=== PATIENT | female | born 1990 | race Two or more races ===

== ENCOUNTER 2023-04-02 09:01 | Outpatient (CLI) | payer OTHER | END 2023-04-02 09:07 | disposition home or self-care (01) | LOC: RX STUDY 09:01 | PROVIDERS: ATTEND Obstetrics & Gynecology Reproductive Endocrinology | DX: N93.0 Postcoital and contact bleeding (principal) ==

== ENCOUNTER 2024-08-15 09:18 | Outpatient (CLI) | payer OTHER | END 2024-08-15 10:08 | disposition home or self-care (01) | LOC: NST 09:18 | PROVIDERS: ATTEND Obstetrics & Gynecology Maternal & Fetal Medicine | DX: Z34.83 Encounter for supervision of other normal pregnancy, third trimester (principal) ==

== ENCOUNTER 2024-09-01 09:31 | Outpatient (CLI) | payer OTHER ==
[2024-09-01] MEDS ORDERED: SYNTHROID88 MCG PO (12:04)
[2024-09-01] MEDS ORDERED: OBSTETRIX EC C1 EAC1 PO (12:04)
== END 2024-09-01 10:09 | disposition home or self-care (01) ==
LOC: NST 09:31
PROVIDERS: ATTEND Obstetrics & Gynecology Maternal & Fetal Medicine
DX: Z34.83 Encounter for supervision of other normal pregnancy, third trimester (principal)

== ENCOUNTER 2024-09-01 11:08 | Outpatient (CLI) | payer OTHER ==
[~2024-09-01] VITALS: Ht 162.6 cm; Wt 112.5 kg
[2024-09-01 11:32] VITALS: BP 135/85
[2024-09-01] MEDS ORDERED: SYNTHROID88 MCG PO (12:04)
[2024-09-01] MEDS ORDERED: OBSTETRIX EC C1 EAC1 PO (12:04)
[2024-09-01 12:49] LABS: URINE APPEARANCE Clear; URINE BILIRRUBIN Negative (NEGATIVE); URINE BLOOD Trace; URINE COLOR Yellow; URINE GLUCOSE Negative (NEGATIVE); URINE KETONE Negative (NEGATIVE); URINE LEUKOCYTE Small; URINE NITRATE Negative; URINE PROTEIN Negative (NEGATIVE); URINE UROBILINOGEN 0.2 E.U./dl
[2024-09-01 13:10] LABS: URINE BACTERIA MANY; URINE MUCUS SCANT; URINE RBC 0-3 /HPF; URINE WBC 13-20 /hpf
[2024-09-01 13:19] LABS: ALT/SGPT 25.0 U/L (12-78); AST/SGOT 18.0 U/L (15-37); BILIRUBIN TOTAL 0.25 mg/dL (0.3-1.2); BUN CREA RATIO 23.0 (7.0-25.0); CREATININE SERUM 0.56 mg/dL (0.55-1.02); GFR 123.19; GLOBULINA 3.6 G/DL (2.4-3.5); GLUCOSE FASTING 65.0 mg/dL (65-100); OSMOLALITY SERUM 274.0 MOSM/KG (275-295)
[2024-09-01 15:09] VITALS: BP 124/72
[2024-09-01 20:32] VITALS: BP 125/74
[2024-09-01 23:09] VITALS: BP 136/83
[2024-09-02 03:00] VITALS: BP 124/81
[2024-09-02 06:23] VITALS: BP 130/87; O2SAT 98
== END 2024-09-02 07:59 | disposition home or self-care (01) ==
LOC: LDR 11:08 → OBS/DEL 11:08 → LDR 09-02 07:59 → EDSTATUS 09-24 08:54
PROVIDERS: ATTEND Obstetrics & Gynecology Maternal & Fetal Medicine
DX: O13.3 Gestational [pregnancy-induced] hypertension without significant proteinuria, third trimester (principal); Z3A.37 37 weeks gestation of pregnancy

== ENCOUNTER 2024-09-04 08:51 | Outpatient (CLI) | payer OTHER ==
[~2024-09-04 08:51] MED LIST: OBSTETRIX EC C1 EAC1 PO; SYNTHROID88 MCG PO
== END 2024-09-04 09:47 | disposition home or self-care (01) ==
LOC: NST 08:51
PROVIDERS: ATTEND Obstetrics & Gynecology Maternal & Fetal Medicine
DX: Z34.83 Encounter for supervision of other normal pregnancy, third trimester (principal)

== ENCOUNTER 2024-09-05 06:04 | Outpatient (CLI) | payer OTHER ==
[2024-09-05 05:00] VITALS: BP 126/87
[2024-09-05 07:13] VITALS: BP 134/80
[2024-09-05 12:32] VITALS: BP 128/73
== END 2024-09-05 12:40 | disposition home or self-care (01) ==
LOC: OBS/DEL 06:04
PROVIDERS: ATTEND Obstetrics & Gynecology Maternal & Fetal Medicine
DX: O26.893 Other specified pregnancy related conditions, third trimester (principal); R10.2 Pelvic and perineal pain; Z3A.37 37 weeks gestation of pregnancy

== ENCOUNTER 2024-09-08 08:46 | Outpatient (CLI) | payer OTHER | END 2024-09-08 09:25 | disposition home or self-care (01) | LOC: NST 08:46 | PROVIDERS: ATTEND Obstetrics & Gynecology Maternal & Fetal Medicine | DX: Z34.83 Encounter for supervision of other normal pregnancy, third trimester (principal) ==

== ENCOUNTER 2024-09-11 12:51 | Outpatient (CLI) | payer OTHER | END 2024-09-11 13:32 | disposition home or self-care (01) | LOC: NST 12:51 | PROVIDERS: ATTEND Obstetrics & Gynecology Maternal & Fetal Medicine | DX: Z34.83 Encounter for supervision of other normal pregnancy, third trimester (principal) ==

== ENCOUNTER 2024-09-15 07:56 | Outpatient (CLI) | payer OTHER | END 2024-09-15 08:58 | disposition home or self-care (01) | LOC: NST 07:56 | PROVIDERS: ATTEND Obstetrics & Gynecology Maternal & Fetal Medicine | DX: Z34.83 Encounter for supervision of other normal pregnancy, third trimester (principal) ==

== ENCOUNTER 2024-09-15 21:48 | Outpatient (CLI) | payer OTHER ==
[2024-09-15 20:49] VITALS: BP 143/82
[2024-09-15 22:02] VITALS: BP 143/82
== END 2024-09-15 22:23 | disposition left against medical advice (07) ==
LOC: OBS/DEL 21:48
PROVIDERS: ATTEND Obstetrics & Gynecology
DX: O26.893 Other specified pregnancy related conditions, third trimester (principal); O26.853 Spotting complicating pregnancy, third trimester; Z3A.38 38 weeks gestation of pregnancy

== ENCOUNTER 2024-09-17 05:01 | Inpatient (IN) | payer OTHER ==
[~2024-09-17] VITALS: Ht 162.6 cm; Wt 2.3 kg
[2024-09-17 05:11] VITALS: BP 135/83
[2024-09-17] MEDS ORDERED: AMPICILLIN SODIUM 2,000 MG VIAL IV ONE (05:45)
[2024-09-17] MEDS ORDERED: OXYTOCIN 500 ML IV SCH (06:45)
[2024-09-17 06:46] LABS: BASO % 0.2 % (0.1-1.2); EOS # 0.05 (0.04-0.54); EOS % 0.4 % (0.7-7.0); LYMPH # 1.60 (1.18-3.74); LYMPH % 13.8 % (19.3-53.1); MEAN PLATELET VOLUME 11.60 fl (9.4-12.4); MONO # 0.62 (0.24-0.82); MONO % 5.3 % (4.7-12.5); NEUT # 9.27 (1.56-6.13); NEUT % 80.0 % (34.0-71.1); RED CELL DISTRIBUTION WIDTH 14.9 % (11.6-14.4)
[2024-09-17 06:55] LABS: INR 0.95
[2024-09-17 07:11] LABS: ALT/SGPT 28.0 U/L (12-78); AST/SGOT 15.0 U/L (15-37); BILIRUBIN TOTAL 0.31 mg/dL (0.3-1.2); BUN CREA RATIO 21.0 (7.0-25.0); CREATININE SERUM 0.63 mg/dL (0.55-1.02); GFR 107.54; GLOBULINA 3.4 G/DL (2.4-3.5); GLUCOSE FASTING 66.0 mg/dL (65-100); OSMOLALITY SERUM 276.0 MOSM/KG (275-295); T4 FREE 1.05 NG/ML (0.76-1.46); TSH 1.49 uIU/mL (0.358-3.74)
[2024-09-17 07:36] VITALS: BP 131/71
[2024-09-17] MEDS ORDERED: AMPICILLIN SODIUM 1,000 MG VIAL IV SCH (09:00)
[2024-09-17 10:59] VITALS: BP 146/88
[2024-09-17] MEDS ORDERED: MORPHINE SULFATE 4 MG/ML VIAL IV ONE ×3 (11:15→15:40)
[2024-09-17] MEDS ORDERED: KETOROLAC TROMETHAMINE 30 MG VIAL IV SCH (13:37)
[2024-09-17] MEDS ORDERED: RINGERS SOLUTION,LACTATED 1,000 ML IV SCH (13:45)
[2024-09-17] MEDS ORDERED: MORPHINE SULFATE 4 MG/ML CARTRIDGE IV PRN (13:45)
[2024-09-17] MEDS ORDERED: OXYTOCIN 1,000 ML IV ONE (13:45)
[2024-09-17] MEDS ORDERED: GABAPENTIN 300 MG CAPSULE PO SCH (17:00)
[2024-09-17] MEDS ORDERED: SIMETHICONE 125 MG CAPSULE PO SCH (17:00)
[2024-09-17 17:45] VITALS: BP 131/80
[2024-09-17] MEDS ORDERED: ACETAMINOPHEN 500 MG GEL..CAP PO SCH (18:00)
[2024-09-17] MEDS ORDERED: ONDANSETRON HCL 2 MG/ML VIAL IV SCH (18:00)
[2024-09-18 02:03] VITALS: BP 137/85
[2024-09-18 05:49] VITALS: BP 135/89
[2024-09-18 06:23] LABS: BASO % 0.2 % (0.1-1.2); EOS # 0.04 (0.04-0.54); EOS % 0.4 % (0.7-7.0); LYMPH # 1.55 (1.18-3.74); LYMPH % 14.0 % (19.3-53.1); MEAN PLATELET VOLUME 11.80 fl (9.4-12.4); MONO # 0.79 (0.24-0.82); MONO % 7.1 % (4.7-12.5); NEUT # 8.67 (1.56-6.13); NEUT % 78.0 % (34.0-71.1); RED CELL DISTRIBUTION WIDTH 15.1 % (11.6-14.4)
[2024-09-18 08:00] VITALS: BP 140/92
[2024-09-18] MEDS ORDERED: KETOROLAC TROMETHAMINE 10 MG TABLET PO SCH (08:00)
[2024-09-18] MEDS ORDERED: OxyCODONE HCL 5 MG TABLET (ROXICODONE) PO PRN (08:00)
[2024-09-18] MEDS ORDERED: DOCUSATE SODIUM 100MG CAP PO SCH (09:00)
[2024-09-18 16:33] VITALS: BP 140/80
[2024-09-18] MEDS ORDERED: ERYTHROMYCIN BASE OPHT 1GM EACH TUBE OP ONE (17:30)
[2024-09-19 01:49] VITALS: BP 126/82
[2024-09-19] MEDS ORDERED: OXYCODONE HCL5 MG PO (07:48)
[2024-09-19] MEDS ORDERED: KETO10TA2 PO (07:48)
[2024-09-19 08:41] VITALS: BP 135/89
[2024-09-19 09:05] LABS: BASO % 0.1 % (0.1-1.2); EOS # 0.07 (0.04-0.54); EOS % 0.8 % (0.7-7.0); LYMPH # 1.41 (1.18-3.74); LYMPH % 17.1 % (19.3-53.1); MEAN PLATELET VOLUME 11.40 fl (9.4-12.4); MONO # 0.53 (0.24-0.82); MONO % 6.4 % (4.7-12.5); NEUT # 6.21 (1.56-6.13); NEUT % 75.2 % (34.0-71.1); RED CELL DISTRIBUTION WIDTH 15.3 % (11.6-14.4)
[2024-09-19 09:06] LABS: URINE APPEARANCE Clear; URINE BILIRRUBIN Negative (NEGATIVE); URINE BLOOD Large; URINE COLOR Yellow; URINE GLUCOSE Negative (NEGATIVE); URINE KETONE Negative (NEGATIVE); URINE LEUKOCYTE Small; URINE NITRATE Negative; URINE PROTEIN Trace (NEGATIVE); URINE UROBILINOGEN 0.2 E.U./dl
[2024-09-19 09:09] LABS: URINE BACTERIA 685.0 uL (0.0-1933); URINE EPITHELIAL CELLS 71.0 uL (0.0-38.8); URINE RBC 109.9 uL (0.0-20.8); URINE WBC 56.3 uL (0.0-23.2)
[2024-09-19 09:13] LABS: URINE CAST 0.00 uL (0.0-1.40)
[2024-09-19 09:54] LABS: ALT/SGPT 36.0 U/L (12-78); AST/SGOT 24.0 U/L (15-37); BILIRUBIN TOTAL 0.36 mg/dL (0.3-1.2); BUN CREA RATIO 22.0 (7.0-25.0); CREATININE SERUM 0.59 mg/dL (0.55-1.02); GFR 115.99; GLOBULINA 3.1 G/DL (2.4-3.5); GLUCOSE FASTING 61.0 mg/dL (65-100); OSMOLALITY SERUM 281.0 MOSM/KG (275-295)
[2024-09-19 13:47] VITALS: BP 136/83; O2SAT 99
== END 2024-09-19 16:39 | disposition home or self-care (01) | DRG 788 ==
LOC: O/R 05:01 → OB/GYN 05:01 → LDR 05:01 → O/R 11:57 → OB/GYN 13:16
PROVIDERS: Obstetrics & Gynecology Maternal & Fetal Medicine; ADMIT Obstetrics & Gynecology; ATTEND Obstetrics & Gynecology
PROC: 4A1HXCZ Monitoring of Products of Conception, Cardiac Rate, External Approach (ICD-10-PCS; 2024-09-17)
PROC: 10D00Z1 Extraction of Products of Conception, Low, Open Approach (ICD-10-PCS; principal; 2024-09-17 18:00)
DX: O36.8130 Decreased fetal movements, third trimester, not applicable or unspecified (principal); O99.824 Streptococcus B carrier state complicating childbirth; Z3A.38 38 weeks gestation of pregnancy; Z37.0 Single live birth